=== PATIENT | female | born 1940 | race Asian ===

== ENCOUNTER 2018-10-19 12:20 | Inpatient (IN) | payer OTHER ==
[~2018-10-19] VITALS: Ht 157.5 cm; Wt 43.7 kg
[2018-10-19] VITALS (11 sets, daily range): BP systolic 100–154; BP diastolic 52–585; TEMP 94.1–98.1
[~2018-10-19 12:20] MED LIST: AMLO2.5T PO; ASCO500T18 PO; CLARITIN10 M1 PO; CRANBERRY450 MG PO; DIVA500T2 OR; DIVA500T2 PO; ESTRACE 0.01% VAG; GABA300C2 PO; GEODON60 MG PO; HALO1TAB3 PO; HALO5INJ3 IM; HYDR10TA47 PO; HYDR2.5C36 EX; HYDROCORTISO2.5 % RE; LAMO25TA PO; LAXATIVE1 TAB PO; LEVO-T88 MCG PO; LORA0.5T17 PO; MEGACE ES PO; METAMUCIL0.52 GM PO; METF100038 PO; MULT VITAMI1 PO; NUDEXTA PO; OLAN10INJ IM; ONDA2INJ2 IV; PANT40IN IV; PANTOPRAZOLE 40MG TA PO; POTA20TA4 PO; POTASSIUM CHLO20 ME2 PO; PRILOSEC DR PO; RISP0.25 PO; RISP1TAB PO; RISP50IN IM; SIMV10TA PO; VITAMIN D50000 UNIT PO; ZESTRIL40 MG PO; ZIPR20CA PO; ZIPR80CA PO
[2018-10-19] MEDS ORDERED: HALO1TAB3 PO (18:56)
[2018-10-19] MEDS ORDERED: VITAMIN D50000 UNIT PO (18:56)
[2018-10-20] VITALS (10 sets, daily range): BP systolic 126–160; BP diastolic 56–99; TEMP 97.5–98.1
[2018-10-20 06:36] LABS: PLATELET COUNT 139 K/uL (152-353)
[2018-10-20 08:09] LABS: POTASSIUM 3.8 mmol/L (3.6-5.2)
[2018-10-20] MEDS ORDERED: FINGERSTIX (12:09)
== END 2018-10-20 10:55 | DRG 369 ==
LOC: ICU 12:20
PROVIDERS: ADMIT Family Medicine
PROC: 0DJ08ZZ Inspection of Upper Intestinal Tract, Via Natural or Artificial Opening Endoscopic (ICD-10-PCS; principal; 2018-10-19)
PROC: 30233N1 Transfusion of Nonautologous Red Blood Cells into Peripheral Vein, Percutaneous Approach (ICD-10-PCS; 2018-10-19)
DX: I85.01 Esophageal varices with bleeding (principal); F20.89 Other schizophrenia; K92.1 Melena; K44.9 Diaphragmatic hernia without obstruction or gangrene; I10 Essential (primary) hypertension; F70 Mild intellectual disabilities; E03.8 Other specified hypothyroidism; D50.0 Iron deficiency anemia secondary to blood loss (chronic)
CPT/HCPCS: 80053; 85027; 86850; 86900; 86901; 86922; 94760; J2250; J2405; J2543; J2704; J3490; P9016